=== PATIENT | male | born 1970 | race Two or more races ===

== ENCOUNTER 2021-04-03 18:30 | Emergency (ER) | payer MEDICAID ==
[~2021-04-03] VITALS: Ht 177.8 cm; Wt 73.0 kg
[2021-04-03 20:38] LABS: BASOPHILS % 0.7 % (0.0-2.0); EOSINOPHILS % 3.9 % (0.0-5.0); HEMATOCRIT. 44.9 % (42.0-52.0); HEMOGLOBIN. 14.9 g/dL (14.0-18.0); LYMPHOCYTES % 23.4 % (20.0-50.0); MEAN CORPUSCULAR HEMOGLOBIN 29.3 pg (28.0-32.0); MEAN CORPUSCULAR VOLUME 88.1 fL (80.0-94.0); MEAN PLATELET VOLUME 10.1 fl (7.4-10.4); MONOCYTES % 12.6 % (2.0-8.0); NEUTROPHILS % 59.4 % (40.0-76.0); PLATELET 243 x1000/uL (130-400); RED CELL DISTRIBUTION WIDTH 12.2 % (11.6-14.6)
[2021-04-03 20:46] LABS: CHLORIDE 105 mEq/L (98-107)
[2021-04-03] MEDS ORDERED: HYDROCODONE/ACETAMINOPHEN 5/325MG TABLET PO ONE (21:15)
[2021-04-03 21:17] LABS: CLARITY URINE CLEAR (CLEAR); COLOR URINE YELLOW (YELLOW); KETONES URINE NEGATIVE (NEGATIVE); LEUKOCYTE ESTERASE URINE NEGATIVE (NEGATIVE); NITRITE URINE NEGATIVE (NEGATIVE); OCCULT BLOOD URINE NEGATIVE (NEGATIVE); PROTEIN URINE NEGATIVE (NEGATIVE); SPECIFIC GRAVITY URINE 1.012 (1.005-1.030); UROBILINOGEN URINE 0.2 E.U./dL (0.2-1.0)
[2021-04-03 22:30] VITALS: BP 144/79
[2021-04-03] MEDS ORDERED: IBUP-2029 MT (22:32)
[2021-04-03] MEDS ORDERED: [UNRECOGNIZED DRUG - OTHER] RC (22:32)
[2021-04-03] MEDS ORDERED: CEPH500C2 MT (22:32)
== END 2021-04-03 23:30 | disposition home or self-care (01) ==
LOC: ER 18:30
DX: L01.02 Bockhart's impetigo (principal)
CPT/HCPCS: 36415; 80053; 81003; 85025; 99283